=== PATIENT | male | born 1965 | race African-American/Black ===

== ENCOUNTER 2019-04-08 10:21 | Inpatient (IN) | payer OTHER ==
[2019-04-08 11:01] VITALS: BMI 31.5
[2019-04-08] MEDS ORDERED: MAGNESIUM CITRATE 300 ML BOTTLE PO PRN (13:00)
[2019-04-08] MEDS ORDERED: MENTHOL/PHENOL 1 EACH UD MM PRN (13:00)
[2019-04-08] MEDS ORDERED: MAG HYDROX/AL HYDROX/SIMETH 30 ML UNIT-DOSE CUP PO PRN (13:00)
[2019-04-08] MEDS ORDERED: MAGNESIUM HYDROX 2400MG/30ML ORAL SUSPENSION 30 ML CUP PO PRN (13:00)
[2019-04-08] MEDS ORDERED: ACETAMINOPHEN 325 MG TABLET (FP) PO PRN (13:00)
[2019-04-08] MEDS ORDERED: IBUPROFEN 400 MG TABLET (FP) PO PRN (13:00)
[2019-04-08] MEDS ORDERED: BISMUTH SUBSALICYLATE 524 MG/30 ML UD PO PRN (13:00)
[2019-04-08] MEDS ORDERED: chlordiazePOXIDE HCL 25 MG CAPSULE PO SCH (13:00)
[2019-04-08] MEDS ORDERED: MELATONIN 5 MG TABLETS PO PRN (13:00)
[2019-04-08] MEDS ORDERED: hydrOXYzine PAMOATE 25 MG CAPSULE (FP) PO PRN (13:00)
--- NOTE | 2019-04-08 13:00 | HP ---
CIWA Score Nausea/Vomitin Muscle Tremors: None Anxiety: 2 Agitation: 2 Paroxysmal Sweats: No Perspiration Orientation: 1-Uncertain about Date Tacttile Disturbances: 2-Mild Itch/Numbness/Burn Auditory Disturbances: 0-None Visual Disturbances: 1-Very Mild Sensitivity Headache: 0-None Present CIWA-Ar Total Score: 10 - Admission Criteria OASAS Guidelines: Admission for Medically Managed Detox: Requires at least one of the followin. CIWA greater than 12 2. Seizures within the past 24 hours 3. Delirium tremens within the past 24 hours 4. Hallucinations within the past 24 hours 5. Acute intervention needed for co occurring medical disorder 6. Acute intervention needed for co occurring psychiatric disorder 7. Severe withdrawal that cannot be handled at a lower level of care (continued vomiting, continued diarrhea, abnormal vital signs) requiring intravenous medication and/or fluids 8. Admitting History and Physical - Smoking History Smoking history: Current some day smoker Have you smoked in the past 12 months: Yes Aproximately how many cigarettes per day: 5 - Alcohol/Substance Use Hx Alcohol Use: Yes Admission ROS [facility] - HPI Allergies/Adverse Reactions: Allergies Allergy/AdvReac Type Severity Reaction Status Date / Time Fish Containing Products Allergy Severe Swelling Verified 04/08/19 10:50 Penicillins Allergy Severe Hives Verified 04/08/19 10:50 History of Present Illness: pt here requesting detox from etoh use , reports 3 pints/day , latest use yesterday . denies seizures, + blackouts, reprots use x 3-4 months. Exam Limitations: Clinical Condition - Ebola screening Have you traveled outside of the country in the last 21 days: No Have you had contact with anyone from an Ebola affected area: No Do you have a fever: No - Review of Systems Constitutional: No Symptoms Reported EENT: reports: Other (no teeth , corneal transplant R) Respiratory: reports: No Symptoms reported Cardiac: reports: No Symptoms Reported GI: reports: See HPI, Other (s/p r inguinal hernia repair , known umbilical hernia asymptomatic) : reports: No Symptoms Reported Musculoskeletal: reports: No Symptoms Reported Integumentary: reports: No Symptoms Reported Neuro: reports: No Symptoms reported Endocrine: reports: No Symptoms Reported Psychiatric: reports: Anxious Patient History - Patient Medical History Hx Anemia: No Hx Asthma: No Hx Chronic Obstructive Pulmonary Disease (COPD): No Hx Cancer: No Hx Cardiac Disorders: No Hx Congestive Heart Failure: No Hx Hypertension: No Hx Hypercholesterolemia: Yes (MAYBE) Hx Pacemaker: No HX Cerebrovascular Accident: No Hx Seizures: No Hx Dementia: No Hx Diabetes: No Hx Gastrointestinal Disorders: Yes (DYSPEPSIA) Hx Liver Disease: No Hx Genitourinary Disorders: No Hx Sexually Transmitted Disorders: No Hx Renal Disease (ESRD): No Hx Thyroid Disease: No Hx Human Immunodeficiency Virus (HIV): No Hx Hepatitis C: No Hx Depression: No Hx Suicide Attempt: No Hx Bipolar Disorder: No Hx Schizophrenia: No - Patient Surgical History Past Surgical History: Yes Hx Neurologic Surgery: No Hx Cataract Extraction: (LEFT CORNEAL TRANSPLANT) Hx Cardiac Surgery: No Hx Lung Surgery: No Hx Breast Surgery: No Hx Breast Biopsy: No Hx Abdominal Surgery: Yes (RT. INGUINAL HERNIA REPAIR) Hx Appendectomy: No Hx Cholecystectomy: No Hx Genitourinary Surgery: No Hx Section: No Hx Orthopedic Surgery: No Other Surgical History: THROAT BIOPSY Anesthesia Reaction: No - PPD History Date: 09/28/14 Results: 0 mm - Smoking Cessation Smoking history: Current some day smoker Have you smoked in the past 12 months: Yes Aproximately how many cigarettes per day: 5 Cigars Per Day: 0 Hx Chewing Tobacco Use: No Initiated information on smoking cessation: No - Substances abused Alcohol Substance route: Oral Frequency: Daily Amount used: REGAN/ BEERS - 12 CANx 22OZ Age of first use: 7 Date of last use: 04/07/19 Heroin Substance route: Inhalation Frequency: 1-2 times per week Amount used: 3BAGS Age of first use: 33 Date of last use: 04/06/19 Cocaine Substance route: Inhalation Frequency: Daily Amount used: 4-BAGS Age of first use: 21 Date of last use: 04/07/19 Admission Physical Exam B[facility] - Vital Signs Vital Signs: Vital Signs - 24 hr 04/08/19 10:49 Temperature 97.7 F Pulse Rate 89 Respiratory 18 Rate Blood Pressure 138/80 - Physical General Appearance: Yes: No Apparent Distress, Anxious HEENTM: Yes: EOMI, Hearing grossly Normal, Normocephalic, Normal Voice Respiratory: Yes: Chest Non-Tender, Lungs Clear, Normal Breath Sounds, No Respiratory Distress, No Accessory Muscle Use Neck: Yes: No masses,lesions,Nodules, Trachea in good position Cardiology: Yes: Regular Rhythm, Regular Rate, S1, S2 Abdominal: Yes: Non Tender, Soft, Protuberent, Hernia (right uimbilical , reducible, non- tender) Musculoskeletal: Yes: full range of Motion, Gait Steady Extremities: Yes: Normal Range of Motion, Non-Tender Neurological: Yes: Fully Oriented, Alert, Motor Strength 5/5, Normal Mood/Affect Integumentary: Yes: Warm - Diagnostic (1) Alcohol dependence Current Visit: Yes Status: Chronic Qualifiers: Substance use status: uncomplicated Qualified Code(s): F10.20 - Alcohol dependence, uncomplicated Breathalyzer - Breathalyzer Breathalyzer: 0 Urine Drug Screen - Test Device Lot number: [id number] Expiration date: 10/20/20 - Control Is test valid?: Yes - Results Drug screen NEGATIVE: No Urine drug screen results: MERY-Cocaine Inpatient Rehab Admission - Rehab Decision to Admit Inpatient rehab admission?: No
[2019-04-08] MEDS ORDERED: chlordiazePOXIDE HCL 10 MG CAPSULE PO PRN (13:04)
[2019-04-08] MEDS ORDERED: diazePAM 5 MG TABLET PO PRN (13:07)
[2019-04-08] MEDS: diazePAM 5 MG TABLET PO SCH ×2 (14:22→22:38)
[2019-04-08 17:10] LABS: HEMOGLOBIN 15.4 GM/dL (11.7-16.9); MCH 21.7 pg (25.7-33.7); MCHC 31.5 g/dl (32.0-35.9); MEAN CELL VOLUME 68.8 fl (80-96); MEAN PLT VOLUME 9.8 fl (7.5-11.1); PLATELET COUNT 183 K/MM3 (134-434); RDW 16.8 % (11.9-15.9)
[2019-04-08 17:14] LABS: RBC 7.13 M/mm3 (4.00-5.60)
[2019-04-08 17:37] LABS: POTASSIUM 4.4 mmol/L (3.5-5.1)
[2019-04-08 17:38] LABS: ALBUMIN 3.8 g/dl (3.4-5.0); BILIRUBIN,TOTAL 0.7 mg/dL (0.2-1); BLOOD UREA NITROGEN 18.7 mg/dL (7-18); CREATININE 1.2 mg/dL (0.55-1.3); TOT PROT 7.3 g/dl (6.4-8.2)
[2019-04-08] MEDS: THIAMINE HCL 100 MG TABLET (FP) PO SCH (22:38)
[2019-04-09] MEDS: diazePAM 5 MG TABLET PO SCH ×3 (05:41→22:49)
[2019-04-09] MEDS: PRENATAL VITAMINS W/ FOLIC ACID TABLET (FP) PO SCH (10:45)
[2019-04-09] MEDS ORDERED: chlordiazePOXIDE HCL 10 MG CAPSULE PO SCH (13:00)
--- NOTE | 2019-04-09 14:46 | PN ---
S CIWA - CIWA Score Nausea/Vomitin-No Nausea/No Vomiting Muscle Tremors: None Anxiety: 4-Mod. Anxious/Guarded Agitation: 3 Paroxysmal Sweats: No Perspiration Orientation: 0-Oriented Tacttile Disturbances: 1-Very Mild Itch/Numbness Auditory Disturbances: 0-None Visual Disturbances: 2-Mild Sensitivity Headache: 0-None Present CIWA-Ar Total Score: 10 BHS Progress Note (SOAP) Subjective: Anxious, Restless, Sweating. Objective: PATIENT A & O X 3, OBSERVED AMBULATING ON DETOX UNIT UNASSISTED. IN NO ACUTE DISTRESS. 04/09/19 14:47 Vital Signs Temperature 98.3 F 04/09/19 09:17 Pulse Rate 96 H 04/09/19 09:17 Respiratory Rate 166 H 04/09/19 09:17 Blood Pressure 119/79 04/09/19 09:17 O2 Sat by Pulse Oximetry (%) Laboratory Tests 04/08/19 04/08/19 04/08/19 13:30 13:30 13:30 WBC 6.0 RBC 7.13 H Hgb 15.4 Hct 49.0 MCV 68.8 L MCH 21.7 L MCHC 31.5 L RDW 16.8 H Plt Count 183 D MPV 9.8 Sodium 137 Potassium 4.4 Chloride 103 Carbon Dioxide 29 Anion Gap 5 L BUN 18.7 H Creatinine 1.2 Est GFR (CKD-EPI)AfAm 78.43 Est GFR (CKD-EPI)NonAf 67.67 Random Glucose 83 Calcium 9.0 Total Bilirubin 0.7 AST 23 ALT 27 Alkaline Phosphatase 82 Total Protein 7.3 Albumin 3.8 RPR Titer Nonreactive LABS NOTED. Assessment: 04/09/19 14:48 WITHDRAWAL SYMPTOMS. Plan: CONTINUE DETOX. INCREASE DAILY ORAL WATER INTAKE.
[2019-04-09] MEDS: THIAMINE HCL 100 MG TABLET (FP) PO SCH (22:49)
[2019-04-10] MEDS: diazePAM 5 MG TABLET PO SCH ×2 (05:38→17:15)
[2019-04-10] MEDS: ACETAMINOPHEN 325 MG TABLET (FP) PO PRN ×2 (08:50→17:15)
[2019-04-10] MEDS: PRENATAL VITAMINS W/ FOLIC ACID TABLET (FP) PO SCH (10:50)
[2019-04-10] MEDS ORDERED: chlordiazePOXIDE HCL 10 MG CAPSULE PO ONE (13:00)
--- NOTE | 2019-04-10 13:10 | PN ---
S CIWA - CIWA Score Nausea/Vomitin-No Nausea/No Vomiting Muscle Tremors: 2 Anxiety: 1-Mildly Anxious Agitation: 1-Slight > Activity Paroxysmal Sweats: No Perspiration Orientation: 0-Oriented Tacttile Disturbances: 0-None Auditory Disturbances: 0-None Visual Disturbances: 0-None Headache: 0-None Present CIWA-Ar Total Score: 4 BHS Progress Note (SOAP) Subjective: tired diarrhea Objective: 04/10/19 13:09 Vital Signs Temperature 97.1 F L 04/10/19 09:27 Pulse Rate 112 H 04/10/19 09:27 Respiratory Rate 18 04/10/19 09:27 Blood Pressure 155/99 04/10/19 09:27 O2 Sat by Pulse Oximetry (%) Laboratory Tests 04/08/19 04/08/19 04/08/19 13:30 13:30 13:30 WBC 6.0 RBC 7.13 H Hgb 15.4 Hct 49.0 MCV 68.8 L MCH 21.7 L MCHC 31.5 L RDW 16.8 H Plt Count 183 D MPV 9.8 Sodium 137 Potassium 4.4 Chloride 103 Carbon Dioxide 29 Anion Gap 5 L BUN 18.7 H Creatinine 1.2 Est GFR (CKD-EPI)AfAm 78.43 Est GFR (CKD-EPI)NonAf 67.67 Random Glucose 83 Calcium 9.0 Total Bilirubin 0.7 AST 23 ALT 27 Alkaline Phosphatase 82 Total Protein 7.3 Albumin 3.8 RPR Titer Nonreactive aaox3 ambulating no acute distress Assessment: 04/10/19 13:10 mild withdrawals Plan: pepto prn increase fluids d/c in am
[2019-04-10] MEDS: THIAMINE HCL 100 MG TABLET (FP) PO SCH (23:05)
[2019-04-11] MEDS: ACETAMINOPHEN 325 MG TABLET (FP) PO PRN (02:31)
[2019-04-11] MEDS ORDERED: diazePAM 5 MG TABLET PO ONE (06:00)
--- NOTE | 2019-04-11 08:41 | DS ---
[facility] Detox Discharge Summary Admission Date: 04/08/19 Discharge Date: 04/11/19 - History Present History: Alcohol Dependence - Physical Exam Results Vital Signs: Vital Signs Temperature 97.7 F 04/11/19 06:56 Pulse Rate 64 04/11/19 06:56 Respiratory Rate 18 04/11/19 06:56 Blood Pressure 139/79 04/11/19 06:56 O2 Sat by Pulse Oximetry (%) Pertinent Admission Physical Exam Findings: Vital Signs Temperature 97.7 F 04/11/19 06:56 Pulse Rate 64 04/11/19 06:56 Respiratory Rate 18 04/11/19 06:56 Blood Pressure 139/79 04/11/19 06:56 O2 Sat by Pulse Oximetry (%) Laboratory Tests 04/08/19 04/08/19 04/08/19 13:30 13:30 13:30 WBC 6.0 RBC 7.13 H Hgb 15.4 Hct 49.0 MCV 68.8 L MCH 21.7 L MCHC 31.5 L RDW 16.8 H Plt Count 183 D MPV 9.8 Sodium 137 Potassium 4.4 Chloride 103 Carbon Dioxide 29 Anion Gap 5 L BUN 18.7 H Creatinine 1.2 Est GFR (CKD-EPI)AfAm 78.43 Est GFR (CKD-EPI)NonAf 67.67 Random Glucose 83 Calcium 9.0 Total Bilirubin 0.7 AST 23 ALT 27 Alkaline Phosphatase 82 Total Protein 7.3 Albumin 3.8 RPR Titer Nonreactive aaox3 ambulating no acute distress - Treatment Hospital Course: Detox Protocol Followed, Detoxed Safely, Responded well, Discharged Condition Good, Rehab Referral Accepted Patient has Accepted a Rehab Referral to: referred to [facility] - Medication Discharge Medications: Ambulatory Orders Ergocalciferol (Vitamin D2) [Vitamin D2] 50,000 unit PO WEEKLY 04/08/19 Simvastatin [Zocor] 10 mg PO HS 04/08/19 - Diagnosis (1) Alcohol dependence Current Visit: Yes Status: Chronic Qualifiers: Substance use status: uncomplicated Qualified Code(s): F10.20 - Alcohol dependence, uncomplicated - AMA Did Patient Leave Against Medical Advice: No
[2019-04-11 09:43] VITALS: BP 137/98; PULSE 94; TEMP 97.8
== END 2019-04-11 10:25 | disposition home or self-care (01) | DRG 775 ==
LOC: YASAS 10:21 → Y6N 13:10
PROVIDERS: ADMIT Allergy & Immunology; ATTEND Allergy & Immunology
PROC: HZ2ZZZZ Detoxification Services for Substance Abuse Treatment (ICD-10-PCS; principal; 2019-04-08)
DX: F10.230 Alcohol dependence with withdrawal, uncomplicated (principal); F17.210 Nicotine dependence, cigarettes, uncomplicated; Z88.0 Allergy status to penicillin; Z91.013 Allergy to seafood
CPT/HCPCS: 36415; 80053; 85027; 86593

== ENCOUNTER 2020-03-01 12:59 | Inpatient (IN) | payer OTHER ==
[2020-03-01 17:27] VITALS: BMI 34.0
[2020-03-01] MEDS ORDERED: NICOTINE POLACRILEX 2 MG GUM BUC PRN (17:54)
[2020-03-01] MEDS ORDERED: P-EPHED 60MG/TRIPROLIDI 2.5MG TABLET PO PRN (17:54)
[2020-03-01] MEDS ORDERED: MAGNESIUM HYDROX 2400MG/30ML ORAL SUSPENSION 30 ML CUP PO PRN (17:54)
[2020-03-01] MEDS ORDERED: MAG HYDROX/AL HYDROX/SIMETH 30 ML UNIT-DOSE CUP PO PRN (17:54)
[2020-03-01] MEDS ORDERED: MAGNESIUM CITRATE 300 ML BOTTLE PO PRN (17:54)
[2020-03-01] MEDS ORDERED: guaiFENesin 200 MG/10 ML 10 ML UNIT-DOSE CUPS PO PRN (17:54)
[2020-03-01] MEDS ORDERED: LOPERAMIDE HCL 2 MG CAPSULE PO PRN (17:54)
[2020-03-01] MEDS: hydrOXYzine PAMOATE 25 MG CAPSULE (FP) PO SCH ×2 (19:10→22:10)
[2020-03-01] MEDS: MELATONIN 5 MG TABLETS PO SCH (22:09)
[2020-03-01] MEDS: THIAMINE HCL 100 MG TABLET (FP) PO SCH (22:10)
[2020-03-01] MEDS ORDERED: PT OWN MED DRAWER 7, Y5N ONE (22:18)
[2020-03-02] MEDS: hydrOXYzine PAMOATE 25 MG CAPSULE (FP) PO SCH ×5 (06:51→22:53)
[2020-03-02] MEDS: HYDROCHLOROTHIAZIDE 12.5 MG CAPSULE (FP) PO SCH (11:09)
[2020-03-02] MEDS: amLODIPine BESYLATE 10 MG TABLET (FP) PO SCH (11:09)
[2020-03-02] MEDS: PRENATAL VITAMINS W/ FOLIC ACID TABLET (FP) PO SCH (11:09)
[2020-03-02 14:44] LABS: POTASSIUM 4.6 mmol/L (3.5-5.1)
[2020-03-02 14:46] LABS: ALBUMIN 3.2 g/dl (3.4-5.0); BLOOD UREA NITROGEN 8.6 mg/dL (7-18); CALCIUM 8.8 mg/dL (8.5-10.1); HEMATOCRIT 49.1 % (35.4-49); HEMOGLOBIN 14.8 GM/dL (11.7-16.9); MCH 21.4 pg (25.7-33.7); MCHC 30.2 g/dl (32.0-35.9); MEAN CELL VOLUME 70.9 fl (80-96); MEAN PLT VOLUME 9.9 fl (7.5-11.1); PLATELET COUNT 208 K/MM3 (134-434); RBC 6.92 M/mm3 (4.00-5.60); RDW 16.6 % (11.9-15.9); WHITE BLOOD COUNT 7.9 K/mm3 (4.0-10.0)
[2020-03-02 14:50] LABS: CREATININE 1.2 mg/dL (0.55-1.3)
[2020-03-02 14:51] LABS: BILIRUBIN,TOTAL 0.4 mg/dL (0.2-1); TOT PROT 6.4 g/dl (6.4-8.2)
[2020-03-02 15:17] LABS: PH,URINE 5.5 (5.0-8.0); URINE APPEARANCE CLEAR; URINE BILIRUBIN NEGATIVE (NEGATIVE); URINE COLOR YELLOW; URINE GLUCOSE (UA) NEGATIVE (NEGATIVE); URINE KETONE NEGATIVE (NEGATIVE); URINE LEUK ESTERASE NEGATIVE (NEGATIVE); URINE NITRITE NEGATIVE (NEGATIVE); URINE PROTEIN NEGATIVE (NEGATIVE)
[2020-03-02 15:20] LABS: SICKLE CELL SCREEN NEGATIVE (NEGATIVE)
[2020-03-02] MEDS: ATORVASTATIN CA 10 MG TABLET (FP) PO SCH (22:53)
[2020-03-02] MEDS: MELATONIN 5 MG TABLETS PO SCH (22:53)
[2020-03-02] MEDS: THIAMINE HCL 100 MG TABLET (FP) PO SCH (22:53)
[2020-03-03] MEDS: hydrOXYzine PAMOATE 25 MG CAPSULE (FP) PO SCH ×6 (06:27→22:38)
[2020-03-03] MEDS: amLODIPine BESYLATE 10 MG TABLET (FP) PO SCH ×2 (09:38→10:11)
[2020-03-03] MEDS: PRENATAL VITAMINS W/ FOLIC ACID TABLET (FP) PO SCH ×2 (09:38→10:11)
[2020-03-03] MEDS: HYDROCHLOROTHIAZIDE 12.5 MG CAPSULE (FP) PO SCH ×2 (09:38→10:11)
[2020-03-03] MEDS: IBUPROFEN 400 MG TABLET (FP) PO PRN (19:46)
[2020-03-03] MEDS: MELATONIN 5 MG TABLETS PO SCH (22:38)
[2020-03-03] MEDS: ATORVASTATIN CA 10 MG TABLET (FP) PO SCH (22:38)
[2020-03-03] MEDS: THIAMINE HCL 100 MG TABLET (FP) PO SCH (22:38)
[2020-03-04] MEDS: hydrOXYzine PAMOATE 25 MG CAPSULE (FP) PO SCH ×5 (07:21→22:48)
[2020-03-04] MEDS: HYDROCHLOROTHIAZIDE 12.5 MG CAPSULE (FP) PO SCH (12:30)
[2020-03-04] MEDS: amLODIPine BESYLATE 10 MG TABLET (FP) PO SCH (12:30)
[2020-03-04] MEDS: PRENATAL VITAMINS W/ FOLIC ACID TABLET (FP) PO SCH (12:32)
[2020-03-04] MEDS: IBUPROFEN 400 MG TABLET (FP) PO PRN (14:05)
[2020-03-04] MEDS: ATORVASTATIN CA 10 MG TABLET (FP) PO SCH (22:47)
[2020-03-04] MEDS: THIAMINE HCL 100 MG TABLET (FP) PO SCH (22:48)
[2020-03-04] MEDS: MELATONIN 5 MG TABLETS PO SCH (22:48)
[2020-03-05] MEDS: hydrOXYzine PAMOATE 25 MG CAPSULE (FP) PO SCH ×2 (06:20→11:01)
[2020-03-05] MEDS: HYDROCHLOROTHIAZIDE 12.5 MG CAPSULE (FP) PO SCH (10:59)
[2020-03-05] MEDS: amLODIPine BESYLATE 10 MG TABLET (FP) PO SCH (10:59)
[2020-03-05] MEDS: PRENATAL VITAMINS W/ FOLIC ACID TABLET (FP) PO SCH (11:01)
[2020-03-05] MEDS ORDERED: hydrOXYzine PAMOATE 25 MG CAPSULE (FP) PO PRN (11:34)
[2020-03-05] MEDS: ATORVASTATIN CA 10 MG TABLET (FP) PO SCH (21:38)
[2020-03-05] MEDS: MELATONIN 5 MG TABLETS PO SCH (21:38)
[2020-03-05] MEDS: THIAMINE HCL 100 MG TABLET (FP) PO SCH (21:38)
[2020-03-06] MEDS: amLODIPine BESYLATE 10 MG TABLET (FP) PO SCH (11:15)
[2020-03-06] MEDS: ACETAMINOPHEN 325 MG TABLET (FP) PO PRN (11:15)
[2020-03-06] MEDS: HYDROCHLOROTHIAZIDE 12.5 MG CAPSULE (FP) PO SCH (11:23)
[2020-03-06] MEDS: PRENATAL VITAMINS W/ FOLIC ACID TABLET (FP) PO SCH (11:23)
[2020-03-06] MEDS: IBUPROFEN 400 MG TABLET (FP) PO PRN (15:14)
[2020-03-06] MEDS: MELATONIN 5 MG TABLETS PO SCH (22:44)
[2020-03-06] MEDS: THIAMINE HCL 100 MG TABLET (FP) PO SCH (22:44)
[2020-03-06] MEDS: ATORVASTATIN CA 10 MG TABLET (FP) PO SCH (22:45)
[2020-03-07] MEDS ORDERED: PT OWN MED DRAWER 7, Y5N ONE (08:27)
[2020-03-07] MEDS: ERGOCALCIFEROL (VIT D2) 50,000 UNIT (1.25 MG) CAPSULE PO SCH (09:39)
[2020-03-07] MEDS: amLODIPine BESYLATE 10 MG TABLET (FP) PO SCH (09:40)
[2020-03-07] MEDS: PRENATAL VITAMINS W/ FOLIC ACID TABLET (FP) PO SCH (09:40)
[2020-03-07] MEDS: HYDROCHLOROTHIAZIDE 12.5 MG CAPSULE (FP) PO SCH (09:40)
[2020-03-07] MEDS: IBUPROFEN 400 MG TABLET (FP) PO PRN (12:46)
[2020-03-07] MEDS: ATORVASTATIN CA 10 MG TABLET (FP) PO SCH (21:32)
[2020-03-07] MEDS: THIAMINE HCL 100 MG TABLET (FP) PO SCH (21:32)
[2020-03-07] MEDS: MELATONIN 5 MG TABLETS PO SCH (21:32)
[2020-03-08] MEDS: amLODIPine BESYLATE 10 MG TABLET (FP) PO SCH (09:22)
[2020-03-08] MEDS: PRENATAL VITAMINS W/ FOLIC ACID TABLET (FP) PO SCH (09:22)
[2020-03-08] MEDS: HYDROCHLOROTHIAZIDE 12.5 MG CAPSULE (FP) PO SCH (09:22)
[2020-03-08] MEDS: IBUPROFEN 400 MG TABLET (FP) PO PRN ×2 (09:23→17:37)
[2020-03-08] MEDS: THIAMINE HCL 100 MG TABLET (FP) PO SCH (21:41)
[2020-03-08] MEDS: MELATONIN 5 MG TABLETS PO SCH (21:41)
[2020-03-08] MEDS: ATORVASTATIN CA 10 MG TABLET (FP) PO SCH (21:41)
[2020-03-09] MEDS: IBUPROFEN 400 MG TABLET (FP) PO PRN ×3 (06:46→18:51)
[2020-03-09] MEDS: PRENATAL VITAMINS W/ FOLIC ACID TABLET (FP) PO SCH (09:07)
[2020-03-09] MEDS: HYDROCHLOROTHIAZIDE 12.5 MG CAPSULE (FP) PO SCH (09:07)
[2020-03-09] MEDS: amLODIPine BESYLATE 10 MG TABLET (FP) PO SCH (09:07)
[2020-03-09] MEDS: MELATONIN 5 MG TABLETS PO SCH (21:38)
[2020-03-09] MEDS: THIAMINE HCL 100 MG TABLET (FP) PO SCH (21:38)
[2020-03-09] MEDS: ATORVASTATIN CA 10 MG TABLET (FP) PO SCH (21:38)
[2020-03-10] MEDS: PRENATAL VITAMINS W/ FOLIC ACID TABLET (FP) PO SCH (11:07)
[2020-03-10] MEDS: HYDROCHLOROTHIAZIDE 12.5 MG CAPSULE (FP) PO SCH (11:07)
[2020-03-10] MEDS: amLODIPine BESYLATE 10 MG TABLET (FP) PO SCH (11:07)
[2020-03-10] MEDS: IBUPROFEN 400 MG TABLET (FP) PO PRN (11:08)
[2020-03-10] MEDS: ATORVASTATIN CA 10 MG TABLET (FP) PO SCH (22:06)
[2020-03-10] MEDS: THIAMINE HCL 100 MG TABLET (FP) PO SCH (22:06)
[2020-03-10] MEDS: MELATONIN 5 MG TABLETS PO SCH (22:06)
[2020-03-11] MEDS: amLODIPine BESYLATE 10 MG TABLET (FP) PO SCH (10:22)
[2020-03-11] MEDS: HYDROCHLOROTHIAZIDE 12.5 MG CAPSULE (FP) PO SCH (10:22)
[2020-03-11] MEDS: PRENATAL VITAMINS W/ FOLIC ACID TABLET (FP) PO SCH (10:22)
[2020-03-11] MEDS: IBUPROFEN 400 MG TABLET (FP) PO PRN (13:05)
[2020-03-11] MEDS: ATORVASTATIN CA 10 MG TABLET (FP) PO SCH (22:24)
[2020-03-11] MEDS: THIAMINE HCL 100 MG TABLET (FP) PO SCH (22:25)
[2020-03-11] MEDS: MELATONIN 5 MG TABLETS PO SCH (22:25)
[2020-03-12] MEDS: HYDROCHLOROTHIAZIDE 12.5 MG CAPSULE (FP) PO SCH (09:51)
[2020-03-12] MEDS: amLODIPine BESYLATE 10 MG TABLET (FP) PO SCH (09:51)
[2020-03-12] MEDS: PRENATAL VITAMINS W/ FOLIC ACID TABLET (FP) PO SCH (09:51)
[2020-03-12] MEDS: IBUPROFEN 400 MG TABLET (FP) PO PRN (09:52)
[2020-03-12] MEDS ORDERED: SODIUM CHLORIDE NASAL SPRAY 44 ML BOTTLE NS PRN (12:39)
[2020-03-12] MEDS: THIAMINE HCL 100 MG TABLET (FP) PO SCH (21:54)
[2020-03-12] MEDS: ATORVASTATIN CA 10 MG TABLET (FP) PO SCH (21:54)
[2020-03-12] MEDS: MELATONIN 5 MG TABLETS PO SCH (21:54)
[2020-03-13] MEDS: IBUPROFEN 400 MG TABLET (FP) PO PRN ×3 (07:49→21:27)
[2020-03-13] MEDS: amLODIPine BESYLATE 10 MG TABLET (FP) PO SCH (10:01)
[2020-03-13] MEDS: PRENATAL VITAMINS W/ FOLIC ACID TABLET (FP) PO SCH (10:01)
[2020-03-13] MEDS: HYDROCHLOROTHIAZIDE 12.5 MG CAPSULE (FP) PO SCH (10:01)
[2020-03-13] MEDS: TETRAHYDROZOLINE HCL EYE DROPS OU PRN (10:56)
[2020-03-13] MEDS: MELATONIN 5 MG TABLETS PO SCH (21:28)
[2020-03-13] MEDS: ATORVASTATIN CA 10 MG TABLET (FP) PO SCH (21:28)
[2020-03-13] MEDS: THIAMINE HCL 100 MG TABLET (FP) PO SCH (21:28)
[2020-03-14] MEDS: IBUPROFEN 400 MG TABLET (FP) PO PRN (10:44)
[2020-03-14] MEDS: ERGOCALCIFEROL (VIT D2) 50,000 UNIT (1.25 MG) CAPSULE PO SCH (10:44)
[2020-03-14] MEDS: amLODIPine BESYLATE 10 MG TABLET (FP) PO SCH (10:44)
[2020-03-14] MEDS: TETRAHYDROZOLINE HCL EYE DROPS OU PRN (10:46)
[2020-03-14] MEDS: PRENATAL VITAMINS W/ FOLIC ACID TABLET (FP) PO SCH (10:46)
[2020-03-14] MEDS: HYDROCHLOROTHIAZIDE 12.5 MG CAPSULE (FP) PO SCH (10:47)
[2020-03-14] MEDS: THIAMINE HCL 100 MG TABLET (FP) PO SCH (21:47)
[2020-03-14] MEDS: MELATONIN 5 MG TABLETS PO SCH (21:47)
[2020-03-14] MEDS: ATORVASTATIN CA 10 MG TABLET (FP) PO SCH (21:47)
[2020-03-15] MEDS: amLODIPine BESYLATE 10 MG TABLET (FP) PO SCH (10:10)
[2020-03-15] MEDS: IBUPROFEN 400 MG TABLET (FP) PO PRN ×2 (10:11→15:17)
[2020-03-15] MEDS: TETRAHYDROZOLINE HCL EYE DROPS OU PRN (10:12)
[2020-03-15] MEDS: HYDROCHLOROTHIAZIDE 12.5 MG CAPSULE (FP) PO SCH (10:12)
[2020-03-15] MEDS: PRENATAL VITAMINS W/ FOLIC ACID TABLET (FP) PO SCH (10:12)
[2020-03-15] MEDS ORDERED: PT OWN MED DRAWER 7, Y5N ONE (19:20)
[2020-03-15] MEDS: MELATONIN 5 MG TABLETS PO SCH (21:51)
[2020-03-15] MEDS: ATORVASTATIN CA 10 MG TABLET (FP) PO SCH (21:51)
[2020-03-15] MEDS: THIAMINE HCL 100 MG TABLET (FP) PO SCH (21:51)
[2020-03-16] MEDS: HYDROCHLOROTHIAZIDE 12.5 MG CAPSULE (FP) PO SCH (10:35)
[2020-03-16] MEDS: amLODIPine BESYLATE 10 MG TABLET (FP) PO SCH (10:35)
[2020-03-16] MEDS: PRENATAL VITAMINS W/ FOLIC ACID TABLET (FP) PO SCH (10:36)
[2020-03-16] MEDS: IBUPROFEN 400 MG TABLET (FP) PO PRN (18:15)
[2020-03-16] MEDS: THIAMINE HCL 100 MG TABLET (FP) PO SCH (21:39)
[2020-03-16] MEDS: MELATONIN 5 MG TABLETS PO SCH (21:39)
[2020-03-16] MEDS: ATORVASTATIN CA 10 MG TABLET (FP) PO SCH (21:39)
[2020-03-17] MEDS: amLODIPine BESYLATE 10 MG TABLET (FP) PO SCH (09:25)
[2020-03-17] MEDS: IBUPROFEN 400 MG TABLET (FP) PO PRN ×2 (09:26→21:40)
[2020-03-17] MEDS: TETRAHYDROZOLINE HCL EYE DROPS OU PRN (09:27)
[2020-03-17] MEDS: HYDROCHLOROTHIAZIDE 12.5 MG CAPSULE (FP) PO SCH (09:28)
[2020-03-17] MEDS: PRENATAL VITAMINS W/ FOLIC ACID TABLET (FP) PO SCH (09:34)
[2020-03-17] MEDS: MELATONIN 5 MG TABLETS PO SCH (21:44)
[2020-03-17] MEDS: ATORVASTATIN CA 10 MG TABLET (FP) PO SCH (21:44)
[2020-03-17] MEDS: THIAMINE HCL 100 MG TABLET (FP) PO SCH (21:44)
[2020-03-18] MEDS: amLODIPine BESYLATE 10 MG TABLET (FP) PO SCH (09:08)
[2020-03-18] MEDS: TETRAHYDROZOLINE HCL EYE DROPS OU PRN (09:08)
[2020-03-18] MEDS: HYDROCHLOROTHIAZIDE 12.5 MG CAPSULE (FP) PO SCH (09:09)
[2020-03-18] MEDS: PRENATAL VITAMINS W/ FOLIC ACID TABLET (FP) PO SCH (09:09)
[2020-03-18] MEDS ORDERED: MASKS NR ONE (17:04)
[2020-03-18] MEDS: IBUPROFEN 400 MG TABLET (FP) PO PRN (20:02)
[2020-03-18] MEDS: ATORVASTATIN CA 10 MG TABLET (FP) PO SCH (22:35)
[2020-03-18] MEDS: THIAMINE HCL 100 MG TABLET (FP) PO SCH (22:35)
[2020-03-18] MEDS: MELATONIN 5 MG TABLETS PO SCH (22:35)
[2020-03-19] MEDS: amLODIPine BESYLATE 10 MG TABLET (FP) PO SCH (10:37)
[2020-03-19] MEDS: IBUPROFEN 400 MG TABLET (FP) PO PRN (10:38)
[2020-03-19] MEDS: PRENATAL VITAMINS W/ FOLIC ACID TABLET (FP) PO SCH (10:49)
[2020-03-19] MEDS: HYDROCHLOROTHIAZIDE 12.5 MG CAPSULE (FP) PO SCH (10:49)
[2020-03-19] MEDS: THIAMINE HCL 100 MG TABLET (FP) PO SCH (21:37)
[2020-03-19] MEDS: MELATONIN 5 MG TABLETS PO SCH (21:37)
[2020-03-19] MEDS: ATORVASTATIN CA 10 MG TABLET (FP) PO SCH (21:37)
[2020-03-20] MEDS: PRENATAL VITAMINS W/ FOLIC ACID TABLET (FP) PO SCH (10:02)
[2020-03-20] MEDS: amLODIPine BESYLATE 10 MG TABLET (FP) PO SCH (10:02)
[2020-03-20] MEDS: HYDROCHLOROTHIAZIDE 12.5 MG CAPSULE (FP) PO SCH (10:02)
[2020-03-20] MEDS: IBUPROFEN 400 MG TABLET (FP) PO PRN (10:03)
[2020-03-20] MEDS: ATORVASTATIN CA 10 MG TABLET (FP) PO SCH (21:52)
[2020-03-20] MEDS: MELATONIN 5 MG TABLETS PO SCH (21:52)
[2020-03-20] MEDS: THIAMINE HCL 100 MG TABLET (FP) PO SCH (21:52)
[2020-03-21] MEDS: HYDROCHLOROTHIAZIDE 12.5 MG CAPSULE (FP) PO SCH (10:21)
[2020-03-21] MEDS: amLODIPine BESYLATE 10 MG TABLET (FP) PO SCH (10:21)
[2020-03-21] MEDS: PRENATAL VITAMINS W/ FOLIC ACID TABLET (FP) PO SCH (10:21)
[2020-03-21] MEDS: ERGOCALCIFEROL (VIT D2) 50,000 UNIT (1.25 MG) CAPSULE PO SCH (10:21)
[2020-03-21] MEDS: MELATONIN 5 MG TABLETS PO SCH (21:25)
[2020-03-21] MEDS: ATORVASTATIN CA 10 MG TABLET (FP) PO SCH (21:25)
[2020-03-21] MEDS: THIAMINE HCL 100 MG TABLET (FP) PO SCH (21:25)
[2020-03-22] MEDS ORDERED: MASKS NR ONE (08:30)
[2020-03-22] MEDS: IBUPROFEN 400 MG TABLET (FP) PO PRN (09:54)
[2020-03-22] MEDS: HYDROCHLOROTHIAZIDE 12.5 MG CAPSULE (FP) PO SCH (09:54)
[2020-03-22] MEDS: PRENATAL VITAMINS W/ FOLIC ACID TABLET (FP) PO SCH (09:54)
[2020-03-22] MEDS: amLODIPine BESYLATE 10 MG TABLET (FP) PO SCH (10:10)
[2020-03-22] MEDS ORDERED: PT OWN MED DRAWER 7, Y5N ONE (11:50)
[2020-03-22] MEDS: MELATONIN 5 MG TABLETS PO SCH (22:26)
[2020-03-22] MEDS: ATORVASTATIN CA 10 MG TABLET (FP) PO SCH (22:26)
[2020-03-22] MEDS: THIAMINE HCL 100 MG TABLET (FP) PO SCH (22:26)
[2020-03-23] MEDS: ACETAMINOPHEN 325 MG TABLET (FP) PO PRN (04:07)
[2020-03-23] MEDS: amLODIPine BESYLATE 10 MG TABLET (FP) PO SCH (09:48)
[2020-03-23] MEDS: HYDROCHLOROTHIAZIDE 12.5 MG CAPSULE (FP) PO SCH (09:48)
[2020-03-23] MEDS: PRENATAL VITAMINS W/ FOLIC ACID TABLET (FP) PO SCH (09:48)
[2020-03-23] MEDS: IBUPROFEN 400 MG TABLET (FP) PO PRN (10:52)
[2020-03-23] MEDS: MELATONIN 5 MG TABLETS PO SCH (21:36)
[2020-03-23] MEDS: ATORVASTATIN CA 10 MG TABLET (FP) PO SCH (21:36)
[2020-03-23] MEDS: THIAMINE HCL 100 MG TABLET (FP) PO SCH (21:36)
[2020-03-23] MEDS ORDERED: PT OWN MED DRAWER 7, Y5N ONE (21:36)
[2020-03-24] MEDS: amLODIPine BESYLATE 10 MG TABLET (FP) PO SCH (10:16)
[2020-03-24] MEDS: HYDROCHLOROTHIAZIDE 12.5 MG CAPSULE (FP) PO SCH (10:17)
[2020-03-24] MEDS: PRENATAL VITAMINS W/ FOLIC ACID TABLET (FP) PO SCH (10:17)
[2020-03-24] MEDS: ATORVASTATIN CA 10 MG TABLET (FP) PO SCH (22:22)
[2020-03-24] MEDS: THIAMINE HCL 100 MG TABLET (FP) PO SCH (22:23)
[2020-03-24] MEDS: MELATONIN 5 MG TABLETS PO SCH (22:23)
[2020-03-25] MEDS: amLODIPine BESYLATE 10 MG TABLET (FP) PO SCH (10:16)
[2020-03-25] MEDS: PRENATAL VITAMINS W/ FOLIC ACID TABLET (FP) PO SCH (10:16)
[2020-03-25] MEDS: HYDROCHLOROTHIAZIDE 12.5 MG CAPSULE (FP) PO SCH (10:16)
[2020-03-25] MEDS: IBUPROFEN 400 MG TABLET (FP) PO PRN (13:46)
[2020-03-25] MEDS ORDERED: PT OWN MED DRAWER 7, Y5N ONE (13:46)
[2020-03-25] MEDS: ATORVASTATIN CA 10 MG TABLET (FP) PO SCH (21:46)
[2020-03-25] MEDS: MELATONIN 5 MG TABLETS PO SCH (21:46)
[2020-03-25] MEDS: THIAMINE HCL 100 MG TABLET (FP) PO SCH (21:46)
[2020-03-26] MEDS: amLODIPine BESYLATE 10 MG TABLET (FP) PO SCH (10:07)
[2020-03-26] MEDS: PRENATAL VITAMINS W/ FOLIC ACID TABLET (FP) PO SCH (10:07)
[2020-03-26] MEDS: HYDROCHLOROTHIAZIDE 12.5 MG CAPSULE (FP) PO SCH (10:07)
[2020-03-26] MEDS: TETRAHYDROZOLINE HCL EYE DROPS OU PRN (10:20)
[2020-03-26] MEDS: IBUPROFEN 400 MG TABLET (FP) PO PRN ×2 (13:31→21:03)
[2020-03-26] MEDS: ATORVASTATIN CA 10 MG TABLET (FP) PO SCH (21:03)
[2020-03-26] MEDS: THIAMINE HCL 100 MG TABLET (FP) PO SCH (21:04)
[2020-03-26] MEDS: MELATONIN 5 MG TABLETS PO SCH (21:04)
[2020-03-27] MEDS: IBUPROFEN 400 MG TABLET (FP) PO PRN ×2 (06:35→12:59)
[2020-03-27] MEDS: amLODIPine BESYLATE 10 MG TABLET (FP) PO SCH (10:09)
[2020-03-27] MEDS: PRENATAL VITAMINS W/ FOLIC ACID TABLET (FP) PO SCH (10:09)
[2020-03-27] MEDS: HYDROCHLOROTHIAZIDE 12.5 MG CAPSULE (FP) PO SCH (10:09)
[2020-03-27] MEDS: ATORVASTATIN CA 10 MG TABLET (FP) PO SCH (21:30)
[2020-03-27] MEDS: THIAMINE HCL 100 MG TABLET (FP) PO SCH (21:30)
[2020-03-27] MEDS: MELATONIN 5 MG TABLETS PO SCH (21:30)
[2020-03-28] MEDS: amLODIPine BESYLATE 10 MG TABLET (FP) PO SCH (09:50)
[2020-03-28] MEDS: ERGOCALCIFEROL (VIT D2) 50,000 UNIT (1.25 MG) CAPSULE PO SCH (09:51)
[2020-03-28] MEDS: HYDROCHLOROTHIAZIDE 12.5 MG CAPSULE (FP) PO SCH (09:51)
[2020-03-28] MEDS: PRENATAL VITAMINS W/ FOLIC ACID TABLET (FP) PO SCH (09:52)
[2020-03-28] MEDS: TETRAHYDROZOLINE HCL EYE DROPS OU PRN (09:52)
[2020-03-28] MEDS ORDERED: PT OWN MED DRAWER 7, Y5N ONE (09:53)
[2020-03-28] MEDS: IBUPROFEN 400 MG TABLET (FP) PO PRN (16:00)
[2020-03-28] MEDS: ATORVASTATIN CA 10 MG TABLET (FP) PO SCH (21:52)
[2020-03-28] MEDS: THIAMINE HCL 100 MG TABLET (FP) PO SCH (21:52)
[2020-03-28] MEDS: MELATONIN 5 MG TABLETS PO SCH (21:52)
[2020-03-29 06:42] VITALS: BP 146/78; PULSE 65; TEMP 97.9
== END 2020-03-29 08:20 | disposition home or self-care (01) | DRG 772 ==
LOC: YASAS 12:59 → Y3W 18:00
PROVIDERS: ADMIT Allergy & Immunology; ATTEND Allergy & Immunology
PROC: HZ42ZZZ Group Counseling for Substance Abuse Treatment, Cognitive-Behavioral (ICD-10-PCS; principal; 2020-03-01)
DX: F10.20 Alcohol dependence, uncomplicated (principal); F14.20 Cocaine dependence, uncomplicated; F17.210 Nicotine dependence, cigarettes, uncomplicated; I10 Essential (primary) hypertension; E78.5 Hyperlipidemia, unspecified; E55.9 Vitamin D deficiency, unspecified; M16.0 Bilateral primary osteoarthritis of hip; H54.8 Legal blindness, as defined in USA; K40.90 Unilateral inguinal hernia, without obstruction or gangrene, not specified as recurrent; Z94.7 Corneal transplant status; Z59.0 Homelessness; Z88.0 Allergy status to penicillin; Z91.013 Allergy to seafood
CPT/HCPCS: 36415; 80053; 81003; 85027; 85660; 86780; C9803; U0003

== ENCOUNTER 2020-08-23 08:28 | Inpatient (IN) | payer OTHER ==
[2020-08-23 09:53] VITALS: BMI 32.0
[2020-08-23] MEDS ORDERED: guaiFENesin 200 MG/10 ML 10 ML UNIT-DOSE CUPS PO PRN (14:51)
[2020-08-23] MEDS ORDERED: MAG HYDROX/AL HYDROX/SIMETH 30 ML UNIT-DOSE CUP PO PRN (14:51)
[2020-08-23] MEDS ORDERED: LOPERAMIDE HCL 2 MG CAPSULE PO PRN (14:51)
[2020-08-23] MEDS ORDERED: MAGNESIUM HYDROX 2400MG/30ML ORAL SUSPENSION 30 ML CUP PO PRN (14:51)
[2020-08-23] MEDS ORDERED: P-EPHED 60MG/TRIPROLIDI 2.5MG TABLET PO PRN (14:51)
[2020-08-23] MEDS ORDERED: MAGNESIUM CITRATE 300 ML BOTTLE PO PRN (14:51)
[2020-08-23] MEDS ORDERED: ACETAMINOPHEN 325 MG TABLET (FP) PO PRN (14:51)
[2020-08-23] MEDS: ASPIRIN COATED 81 MG TABLET.EC PO SCH (15:42)
[2020-08-23] MEDS: ATORVASTATIN CA 10 MG TABLET (FP) PO SCH (21:08)
[2020-08-23] MEDS: THIAMINE HCL 100 MG TABLET (FP) PO SCH (21:08)
[2020-08-23] MEDS: hydrOXYzine PAMOATE 25 MG CAPSULE (FP) PO PRN (21:08)
[2020-08-23] MEDS: MELATONIN 5 MG TABLETS PO SCH (21:10)
[2020-08-24] MEDS: HYDROCHLOROTHIAZIDE 12.5 MG CAPSULE (FP) PO SCH (10:22)
[2020-08-24] MEDS: ASPIRIN COATED 81 MG TABLET.EC PO SCH (10:23)
[2020-08-24] MEDS: amLODIPine BESYLATE 10 MG TABLET (FP) PO SCH (10:23)
[2020-08-24] MEDS: PRENATAL VITAMINS W/ FOLIC ACID TABLET (FP) PO SCH (10:25)
[2020-08-24 11:25] LABS: HEMATOCRIT 46.1 % (35.4-49); HEMOGLOBIN 14.2 GM/dL (11.7-16.9); MCH 21.9 pg (25.7-33.7); MCHC 30.8 g/dl (32.0-35.9); MEAN CELL VOLUME 71.2 fl (80-96); MEAN PLT VOLUME 10.2 fl (7.5-11.1); PLATELET COUNT 197 K/MM3 (134-434); RBC 6.47 M/mm3 (4.00-5.60); RDW 18.3 % (11.9-15.9); WHITE BLOOD COUNT 7.3 K/mm3 (4.0-10.0)
[2020-08-24 11:45] LABS: ALBUMIN 3.4 g/dl (3.4-5.0)
[2020-08-24 11:46] LABS: BLOOD UREA NITROGEN 15.4 mg/dL (7-18)
[2020-08-24 11:49] LABS: CREATININE 1.2 mg/dL (0.55-1.3)
[2020-08-24 11:50] LABS: BILIRUBIN,TOTAL 0.7 mg/dL (0.2-1)
[2020-08-24 11:52] LABS: TOT PROT 6.7 g/dl (6.4-8.2)
[2020-08-24] MEDS: ATENOLOL 50 MG TABLET (FP) PO SCH (11:57)
[2020-08-24] MEDS: MELATONIN 5 MG TABLETS PO SCH (21:55)
[2020-08-24] MEDS: ATORVASTATIN CA 10 MG TABLET (FP) PO SCH (21:55)
[2020-08-24] MEDS: hydrOXYzine PAMOATE 25 MG CAPSULE (FP) PO PRN (21:55)
[2020-08-24] MEDS: THIAMINE HCL 100 MG TABLET (FP) PO SCH (21:55)
[2020-08-24] MEDS: IBUPROFEN 400 MG TABLET (FP) PO PRN (21:56)
[2020-08-25 06:42] VITALS: TEMP 97.1
[2020-08-25] MEDS: ASPIRIN COATED 81 MG TABLET.EC PO SCH (09:29)
[2020-08-25] MEDS: ATENOLOL 50 MG TABLET (FP) PO SCH (09:29)
[2020-08-25] MEDS: PRENATAL VITAMINS W/ FOLIC ACID TABLET (FP) PO SCH (09:29)
[2020-08-25] MEDS: HYDROCHLOROTHIAZIDE 12.5 MG CAPSULE (FP) PO SCH (09:29)
[2020-08-25] MEDS: amLODIPine BESYLATE 10 MG TABLET (FP) PO SCH (09:29)
[2020-08-25] MEDS: MELATONIN 5 MG TABLETS PO SCH (21:55)
[2020-08-25] MEDS: ATORVASTATIN CA 10 MG TABLET (FP) PO SCH (21:55)
[2020-08-25] MEDS: THIAMINE HCL 100 MG TABLET (FP) PO SCH (21:55)
[2020-08-26] MEDS ORDERED: PT OWN MED DRAWER 7, Y5N ONE (08:42)
[2020-08-26] MEDS: ASPIRIN COATED 81 MG TABLET.EC PO SCH (10:21)
[2020-08-26] MEDS: PRENATAL VITAMINS W/ FOLIC ACID TABLET (FP) PO SCH (10:21)
[2020-08-26] MEDS: ATENOLOL 50 MG TABLET (FP) PO SCH (10:21)
[2020-08-26] MEDS: HYDROCHLOROTHIAZIDE 12.5 MG CAPSULE (FP) PO SCH (10:21)
[2020-08-26] MEDS: amLODIPine BESYLATE 10 MG TABLET (FP) PO SCH (10:21)
[2020-08-26] MEDS: THIAMINE HCL 100 MG TABLET (FP) PO SCH (21:06)
[2020-08-26] MEDS: ATORVASTATIN CA 10 MG TABLET (FP) PO SCH (21:06)
[2020-08-26] MEDS: MELATONIN 5 MG TABLETS PO SCH (21:06)
[2020-08-26] MEDS: IBUPROFEN 400 MG TABLET (FP) PO PRN (21:07)
[2020-08-26] MEDS: hydrOXYzine PAMOATE 25 MG CAPSULE (FP) PO PRN (21:07)
[2020-08-27] MEDS: PRENATAL VITAMINS W/ FOLIC ACID TABLET (FP) PO SCH (09:35)
[2020-08-27] MEDS: ATENOLOL 50 MG TABLET (FP) PO SCH (09:35)
[2020-08-27] MEDS: ASPIRIN COATED 81 MG TABLET.EC PO SCH (09:35)
[2020-08-27] MEDS: amLODIPine BESYLATE 10 MG TABLET (FP) PO SCH (09:35)
[2020-08-27] MEDS: HYDROCHLOROTHIAZIDE 12.5 MG CAPSULE (FP) PO SCH (09:35)
[2020-08-27 14:07] LABS: SARS-CoV-2 NAA Not Detected (Not Detected)
[2020-08-27 14:15] VITALS: BP 136/66; PULSE 72
[2020-08-28 07:50] LABS: URINE APPEARANCE CLEAR; URINE BILIRUBIN NEGATIVE (NEGATIVE); URINE COLOR YELLOW; URINE GLUCOSE (UA) NEGATIVE (NEGATIVE); URINE KETONE NEGATIVE (NEGATIVE); URINE LEUK ESTERASE NEGATIVE (NEGATIVE); URINE NITRITE NEGATIVE (NEGATIVE); URINE PROTEIN NEGATIVE (NEGATIVE); URINE UROBILINOGEN 0.2 mg/dL (0.2-1.0)
[2020-08-30] MEDS ORDERED: ERGOCALCIFEROL (VIT D2) 50,000 UNIT (1.25 MG) CAPSULE PO SCH (10:00)
== END 2020-08-27 15:15 | disposition left against medical advice (07) | DRG 770 ==
LOC: YASAS 08:28 → Y5N 15:06
PROVIDERS: ADMIT Allergy & Immunology; ATTEND Allergy & Immunology
PROC: HZ42ZZZ Group Counseling for Substance Abuse Treatment, Cognitive-Behavioral (ICD-10-PCS; principal; 2020-08-23)
DX: F10.20 Alcohol dependence, uncomplicated (principal); F14.20 Cocaine dependence, uncomplicated; F12.20 Cannabis dependence, uncomplicated; F17.210 Nicotine dependence, cigarettes, uncomplicated; I10 Essential (primary) hypertension; E78.5 Hyperlipidemia, unspecified; M17.0 Bilateral primary osteoarthritis of knee; H54.8 Legal blindness, as defined in USA; Z94.7 Corneal transplant status; Z98.890 Other specified postprocedural states; Z88.0 Allergy status to penicillin; Z91.013 Allergy to seafood
CPT/HCPCS: 36415; 80053; 81003; 85027; 86780; C9803; U0003; U0005

== ENCOUNTER 2022-09-06 10:41 | Inpatient (IN) | payer OTHER ==
[2022-09-06 11:22] VITALS: BMI 32.8
[2022-09-06] MEDS ORDERED: LORazepam 1 MG TABLET PO PRN (12:41)
[2022-09-06] MEDS ORDERED: guaiFENesin 600 MG TABLET.ER (FP) PO PRN (12:41)
[2022-09-06] MEDS ORDERED: MAG HYDROX/AL HYDROX/SIMETH 30 ML UNIT-DOSE CUP PO PRN (12:41)
[2022-09-06] MEDS ORDERED: POLYETHYLENE GLYCOL (HEALTHYLAX) 3350 17 GM PACKET PO PRN (12:41)
[2022-09-06] MEDS ORDERED: DICYCLOMINE HCL 10 MG CAPSULE PO PRN (12:41)
[2022-09-06] MEDS ORDERED: BENZOCAINE/MENTHOL (CHLORASEPTIC ) LOZENGE MM PRN (12:41)
[2022-09-06] MEDS ORDERED: BENZONATATE 200 MG CAPSULE PO PRN (12:41)
[2022-09-06] MEDS ORDERED: MAGNESIUM HYDROX 2400MG/30ML ORAL SUSPENSION 30 ML CUP PO PRN (12:41)
[2022-09-06] MEDS ORDERED: NALOXONE HCL 0.4 MG/ML VIAL IM PRN (12:41)
[2022-09-06] MEDS ORDERED: ONDANSETRON *ODT* 4 MG TABLET SL PRN (12:41)
[2022-09-06] MEDS ORDERED: LOPERAMIDE HCL 2 MG CAPSULE PO PRN (12:41)
[2022-09-06] MEDS ORDERED: NALOXONE HCL (KLOXXADO) 8 MG SPRAY NS PRN (12:41)
[2022-09-06] MEDS ORDERED: BISMUTH SUBSALICYLATE 524 MG/30 ML PO PRN (12:41)
[2022-09-06] MEDS ORDERED: METHOCARBAMOL 500 MG TABLET ONE (13:30)
[2022-09-06] MEDS ORDERED: LORazepam 1 MG TABLET ONE (13:31)
[2022-09-06] MEDS: METHOCARBAMOL 500 MG TABLET PO PRN (13:35)
[2022-09-06] MEDS: LORazepam 2 MG TABLET PO SCH ×2 (17:31→22:28)
[2022-09-06] MEDS: ACETAMINOPHEN 325 MG TABLET (FP) PO PRN (17:33)
[2022-09-06] MEDS ORDERED: MELATONIN 5 MG TABLETS PO SCH (22:00)
[2022-09-06] MEDS: ATORVASTATIN CA 10 MG TABLET (FP) PO SCH (22:27)
[2022-09-06] MEDS: THIAMINE HCL 100 MG TABLET (FP) PO SCH (22:28)
[2022-09-07] MEDS: LORazepam 2 MG TABLET PO SCH ×5 (06:00→23:32)
[2022-09-07] MEDS: PRENATAL VITAMINS W/ FOLIC ACID TABLET (FP) PO SCH (10:29)
[2022-09-07] MEDS: METHOCARBAMOL 500 MG TABLET PO PRN ×2 (10:29→17:26)
[2022-09-07] MEDS: amLODIPine BESYLATE 5 MG TABLET (FP) PO SCH (10:31)
[2022-09-07] MEDS: ASPIRIN COATED 81 MG TABLET.EC PO SCH (10:31)
[2022-09-07] MEDS ORDERED: COLLOIDAL OATMEAL 1 BAR EACH TP PRN (14:32)
[2022-09-07] MEDS ORDERED: MELATONIN 5 MG TABLETS PO PRN (22:00)
[2022-09-07] MEDS: ATORVASTATIN CA 10 MG TABLET (FP) PO SCH (23:33)
[2022-09-07] MEDS: THIAMINE HCL 100 MG TABLET (FP) PO SCH (23:33)
[2022-09-08] MEDS: LORazepam 1 MG TABLET PO SCH ×4 (05:52→23:07)
[2022-09-08] MEDS: METHOCARBAMOL 500 MG TABLET PO PRN ×2 (05:55→17:34)
[2022-09-08] MEDS: ASPIRIN COATED 81 MG TABLET.EC PO SCH (10:05)
[2022-09-08] MEDS: amLODIPine BESYLATE 5 MG TABLET (FP) PO SCH (10:05)
[2022-09-08] MEDS: PRENATAL VITAMINS W/ FOLIC ACID TABLET (FP) PO SCH (10:06)
[2022-09-08 10:50] LABS: HEMATOCRIT 48.3 % (35.4-49); HEMOGLOBIN 14.9 GM/dL (11.7-16.9); MCH 21.3 pg (25.7-33.7); MCHC 30.9 g/dl (32.0-35.9); MEAN CELL VOLUME 69.1 fl (80-96); MEAN PLT VOLUME 10.1 fl (7.5-11.1); PLATELET COUNT 191 10^3/uL (134-434); RBC 6.99 M/mm3 (4.00-5.60); RDW 16.9 % (11.9-15.9)
[2022-09-08 11:12] LABS: POTASSIUM 4.7 mmol/L (3.5-5.1)
[2022-09-08 11:16] LABS: CALCIUM 8.7 mg/dL (8.5-10.1)
[2022-09-08 11:17] LABS: ALBUMIN 3.2 g/dl (3.4-5.0); BLOOD UREA NITROGEN 18.5 mg/dL (7-18); CREATININE 1.1 mg/dL (0.55-1.3)
[2022-09-08 11:19] LABS: BILIRUBIN,TOTAL 0.3 mg/dL (0.2-1); TOT PROT 6.5 g/dl (6.4-8.2)
[2022-09-08] MEDS: ATORVASTATIN CA 10 MG TABLET (FP) PO SCH (23:07)
[2022-09-08] MEDS: THIAMINE HCL 100 MG TABLET (FP) PO SCH (23:08)
[2022-09-09] MEDS ORDERED: LORazepam 0.5 MG TABLET PO PRN
[2022-09-09] MEDS: ACETAMINOPHEN 325 MG TABLET (FP) PO PRN (02:44)
[2022-09-09] MEDS: METHOCARBAMOL 500 MG TABLET PO PRN ×3 (02:44→17:28)
[2022-09-09] MEDS: LORazepam 0.5 MG TABLET PO SCH ×4 (05:36→22:56)
[2022-09-09] MEDS: LACTULOSE 20 GM/30 ML UDC (FOR ORAL USE ONLY) PO SCH ×4 (10:14→22:55)
[2022-09-09] MEDS: ASPIRIN COATED 81 MG TABLET.EC PO SCH (10:23)
[2022-09-09] MEDS: PRENATAL VITAMINS W/ FOLIC ACID TABLET (FP) PO SCH (10:23)
[2022-09-09] MEDS: amLODIPine BESYLATE 5 MG TABLET (FP) PO SCH (10:24)
[2022-09-09] MEDS: ATORVASTATIN CA 10 MG TABLET (FP) PO SCH (22:56)
[2022-09-09] MEDS: THIAMINE HCL 100 MG TABLET (FP) PO SCH (22:56)
[2022-09-10] MEDS: METHOCARBAMOL 500 MG TABLET PO PRN (04:30)
[2022-09-10] MEDS ORDERED: IBUPROFEN 400 MG TABLET (FP) PO ONE (04:40)
[2022-09-10] MEDS ORDERED: LORazepam 0.5 MG TABLET PO ONE (05:00)
[2022-09-10 09:25] VITALS: BP 129/76; PULSE 79; RESP 18; TEMP 97.3
[2022-09-10] MEDS: PRENATAL VITAMINS W/ FOLIC ACID TABLET (FP) PO SCH (09:33)
[2022-09-10] MEDS: LACTULOSE 20 GM/30 ML UDC (FOR ORAL USE ONLY) PO SCH (09:34)
[2022-09-10] MEDS: amLODIPine BESYLATE 5 MG TABLET (FP) PO SCH (09:35)
[2022-09-10] MEDS: ASPIRIN COATED 81 MG TABLET.EC PO SCH (09:35)
== END 2022-09-10 09:44 | disposition other institution (70) | DRG 774 ==
LOC: YASAS 10:41 → Y6N 13:26
PROVIDERS: ADMIT Allergy & Immunology; ATTEND Surgery
PROC: HZ2ZZZZ Detoxification Services for Substance Abuse Treatment (ICD-10-PCS; principal; 2022-09-06)
DX: F10.230 Alcohol dependence with withdrawal, uncomplicated (principal); F14.20 Cocaine dependence, uncomplicated; E78.5 Hyperlipidemia, unspecified; I10 Essential (primary) hypertension; I25.2 Old myocardial infarction; H54.8 Legal blindness, as defined in USA; M17.0 Bilateral primary osteoarthritis of knee; R79.89 Other specified abnormal findings of blood chemistry; Z95.5 Presence of coronary angioplasty implant and graft; Z99.89 Dependence on other enabling machines and devices; Z87.891 Personal history of nicotine dependence; Z88.0 Allergy status to penicillin; Z91.013 Allergy to seafood; Z28.310 Unvaccinated for COVID-19; Z28.9 Immunization not carried out for unspecified reason
CPT/HCPCS: 36415; 80053; 82140; 85027; 86780; 87635; 93005; 93010

== ENCOUNTER 2022-09-10 09:53 | Inpatient (IN) | payer OTHER ==
[2022-09-10] MEDS ORDERED: guaiFENesin 600 MG TABLET.ER (FP) PO PRN (10:24)
[2022-09-10] MEDS ORDERED: LOPERAMIDE HCL 2 MG CAPSULE PO PRN (10:24)
[2022-09-10] MEDS ORDERED: NICOTINE 10 MG CARTRIDGE (INHALER) IH PRN (10:24)
[2022-09-10] MEDS ORDERED: IBUPROFEN 400 MG TABLET (FP) PO PRN (10:24)
[2022-09-10] MEDS ORDERED: hydrOXYzine PAMOATE 25 MG CAPSULE (FP) PO PRN (10:24)
[2022-09-10] MEDS ORDERED: ACETAMINOPHEN 325 MG TABLET (FP) PO PRN (10:24)
[2022-09-10] MEDS ORDERED: NICOTINE POLACRILEX 2 MG GUM BUC PRN (10:24)
[2022-09-10] MEDS ORDERED: MAG HYDROX/AL HYDROX/SIMETH 30 ML UNIT-DOSE CUP PO PRN (10:24)
[2022-09-10] MEDS ORDERED: BENZONATATE 200 MG CAPSULE PO PRN (10:24)
[2022-09-10] MEDS ORDERED: AMMONIUM LACTATE 12% LOTION 225 GM BOTTLE TP PRN (10:24)
[2022-09-10] MEDS ORDERED: BENZOCAINE/MENTHOL (CHLORASEPTIC ) LOZENGE MM PRN (10:24)
[2022-09-10] MEDS ORDERED: POLYETHYLENE GLYCOL (HEALTHYLAX) 3350 17 GM PACKET PO PRN (10:24)
[2022-09-10] MEDS ORDERED: MAGNESIUM HYDROX 2400MG/30ML ORAL SUSPENSION 30 ML CUP PO PRN (10:24)
[2022-09-10] MEDS ORDERED: COLLOIDAL OATMEAL 1 BAR EACH TP PRN (10:24)
[2022-09-10] MEDS: LACTULOSE 20 GM/30 ML UDC (FOR ORAL USE ONLY) PO SCH ×3 (14:02→21:11)
[2022-09-10] MEDS: MELATONIN 5 MG TABLETS PO SCH (21:10)
[2022-09-10] MEDS: THIAMINE HCL 100 MG TABLET (FP) PO SCH (21:10)
[2022-09-10] MEDS: METHOCARBAMOL 500 MG TABLET PO PRN (21:12)
[2022-09-10] MEDS: ATORVASTATIN CA 10 MG TABLET (FP) PO SCH (21:12)
[2022-09-11] MEDS: IBUPROFEN 600 MG TABLET (FP) PO PRN (08:47)
[2022-09-11] MEDS: ASPIRIN COATED 81 MG TABLET.EC PO SCH (09:11)
[2022-09-11] MEDS: amLODIPine BESYLATE 10 MG TABLET (FP) PO SCH (09:11)
[2022-09-11] MEDS: PRENATAL VITAMINS W/ FOLIC ACID TABLET (FP) PO SCH (09:12)
[2022-09-11] MEDS: LACTULOSE 20 GM/30 ML UDC (FOR ORAL USE ONLY) PO SCH ×4 (09:12→21:24)
[2022-09-11] MEDS: METHOCARBAMOL 500 MG TABLET PO PRN (21:24)
[2022-09-11] MEDS: THIAMINE HCL 100 MG TABLET (FP) PO SCH (21:25)
[2022-09-11] MEDS: MELATONIN 5 MG TABLETS PO SCH (21:25)
[2022-09-11] MEDS: ATORVASTATIN CA 10 MG TABLET (FP) PO SCH (21:25)
[2022-09-12] MEDS: amLODIPine BESYLATE 10 MG TABLET (FP) PO SCH (09:50)
[2022-09-12] MEDS: ASPIRIN COATED 81 MG TABLET.EC PO SCH (09:50)
[2022-09-12] MEDS: PRENATAL VITAMINS W/ FOLIC ACID TABLET (FP) PO SCH (09:50)
[2022-09-12] MEDS: IBUPROFEN 600 MG TABLET (FP) PO PRN ×2 (09:52→15:19)
[2022-09-12] MEDS: LACTULOSE 20 GM/30 ML UDC (FOR ORAL USE ONLY) PO SCH ×4 (10:22→21:32)
[2022-09-12] MEDS ORDERED: ERGOCALCIFEROL (VIT D2) 50,000 UNIT (1.25 MG) CAPSULE PO SCH (12:00)
[2022-09-12] MEDS: MELATONIN 5 MG TABLETS PO SCH (21:32)
[2022-09-12] MEDS: METHOCARBAMOL 500 MG TABLET PO PRN (21:32)
[2022-09-12] MEDS: ATORVASTATIN CA 10 MG TABLET (FP) PO SCH (21:32)
[2022-09-12] MEDS: THIAMINE HCL 100 MG TABLET (FP) PO SCH (21:32)
[2022-09-13] MEDS: IBUPROFEN 600 MG TABLET (FP) PO PRN ×2 (09:05→21:26)
[2022-09-13] MEDS: amLODIPine BESYLATE 10 MG TABLET (FP) PO SCH (09:05)
[2022-09-13] MEDS: PRENATAL VITAMINS W/ FOLIC ACID TABLET (FP) PO SCH (09:05)
[2022-09-13] MEDS: ASPIRIN COATED 81 MG TABLET.EC PO SCH (09:05)
[2022-09-13] MEDS: LACTULOSE 20 GM/30 ML UDC (FOR ORAL USE ONLY) PO SCH ×4 (09:05→21:25)
[2022-09-13] MEDS: THIAMINE HCL 100 MG TABLET (FP) PO SCH (21:24)
[2022-09-13] MEDS: ATORVASTATIN CA 10 MG TABLET (FP) PO SCH (21:25)
[2022-09-13] MEDS: METHOCARBAMOL 500 MG TABLET PO PRN (21:25)
[2022-09-13] MEDS: MELATONIN 5 MG TABLETS PO SCH (21:25)
[2022-09-14] MEDS: PRENATAL VITAMINS W/ FOLIC ACID TABLET (FP) PO SCH (09:21)
[2022-09-14] MEDS: amLODIPine BESYLATE 10 MG TABLET (FP) PO SCH (09:21)
[2022-09-14] MEDS: LACTULOSE 20 GM/30 ML UDC (FOR ORAL USE ONLY) PO SCH ×4 (09:21→21:27)
[2022-09-14] MEDS: ASPIRIN COATED 81 MG TABLET.EC PO SCH (09:21)
[2022-09-14] MEDS: IBUPROFEN 600 MG TABLET (FP) PO PRN ×2 (09:22→21:26)
[2022-09-14] MEDS: THIAMINE HCL 100 MG TABLET (FP) PO SCH (21:25)
[2022-09-14] MEDS: MELATONIN 5 MG TABLETS PO SCH (21:25)
[2022-09-14] MEDS: ATORVASTATIN CA 10 MG TABLET (FP) PO SCH (21:27)
[2022-09-15] MEDS: METHOCARBAMOL 500 MG TABLET PO PRN (10:17)
[2022-09-15] MEDS: amLODIPine BESYLATE 10 MG TABLET (FP) PO SCH (10:17)
[2022-09-15] MEDS: LACTULOSE 20 GM/30 ML UDC (FOR ORAL USE ONLY) PO SCH ×4 (10:18→21:23)
[2022-09-15] MEDS: PRENATAL VITAMINS W/ FOLIC ACID TABLET (FP) PO SCH (10:18)
[2022-09-15] MEDS: ASPIRIN COATED 81 MG TABLET.EC PO SCH (10:52)
[2022-09-15] MEDS: ATORVASTATIN CA 10 MG TABLET (FP) PO SCH (21:24)
[2022-09-15] MEDS: THIAMINE HCL 100 MG TABLET (FP) PO SCH (21:24)
[2022-09-15] MEDS: MELATONIN 5 MG TABLETS PO SCH (21:24)
[2022-09-16 06:31] VITALS: RESP 16; TEMP 98
[2022-09-16] MEDS: ASPIRIN COATED 81 MG TABLET.EC PO SCH (09:08)
[2022-09-16] MEDS: LACTULOSE 20 GM/30 ML UDC (FOR ORAL USE ONLY) PO SCH (09:08)
[2022-09-16] MEDS: PRENATAL VITAMINS W/ FOLIC ACID TABLET (FP) PO SCH (09:09)
[2022-09-16] MEDS: amLODIPine BESYLATE 10 MG TABLET (FP) PO SCH (09:09)
[2022-09-16 09:15] VITALS: BP 122/78; PULSE 92
== END 2022-09-16 09:16 | disposition home or self-care (01) | DRG 772 ==
LOC: YASAS 09:53 → Y3E 09:56
PROVIDERS: ADMIT Allergy & Immunology; ATTEND Psychiatry & Neurology Pain Medicine
PROC: HZ42ZZZ Group Counseling for Substance Abuse Treatment, Cognitive-Behavioral (ICD-10-PCS; principal; 2022-09-10)
DX: F10.20 Alcohol dependence, uncomplicated (principal); F14.20 Cocaine dependence, uncomplicated; F41.9 Anxiety disorder, unspecified; E78.5 Hyperlipidemia, unspecified; I10 Essential (primary) hypertension; I25.2 Old myocardial infarction; H54.8 Legal blindness, as defined in USA; M17.0 Bilateral primary osteoarthritis of knee; N40.0 Benign prostatic hyperplasia without lower urinary tract symptoms; R79.89 Other specified abnormal findings of blood chemistry; Z87.891 Personal history of nicotine dependence; Z94.7 Corneal transplant status; Z99.89 Dependence on other enabling machines and devices
CPT/HCPCS: 82306

== ENCOUNTER 2023-06-02 10:54 | Inpatient (IN) | payer OTHER ==
[2023-06-02 11:16] VITALS: BMI 30.4
[2023-06-02] MEDS ORDERED: BENZOCAINE/MENTHOL (CHLORASEPTIC ) LOZENGE MM PRN (11:53)
[2023-06-02] MEDS ORDERED: guaiFENesin 600 MG TABLET.ER (FP) PO PRN (11:53)
[2023-06-02] MEDS ORDERED: BENZONATATE 200 MG CAPSULE PO PRN (11:53)
[2023-06-02] MEDS ORDERED: IBUPROFEN 400 MG TABLET (FP) PO PRN (11:53)
[2023-06-02] MEDS ORDERED: POLYETHYLENE GLYCOL (HEALTHYLAX) 3350 17 GM PACKET PO PRN (11:53)
[2023-06-02] MEDS ORDERED: LOPERAMIDE HCL 2 MG CAPSULE PO PRN (11:53)
[2023-06-02] MEDS ORDERED: MAG HYDROX/AL HYDROX/SIMETH 30 ML UNIT-DOSE CUP PO PRN (11:53)
[2023-06-02] MEDS ORDERED: NALOXONE HCL 0.4 MG/ML VIAL IM PRN (11:53)
[2023-06-02] MEDS ORDERED: NALOXONE HCL (KLOXXADO) 8 MG SPRAY NS PRN (11:53)
[2023-06-02] MEDS: PRENATAL VITAMINS W/ FOLIC ACID TABLET (FP) PO SCH (15:02)
[2023-06-02] MEDS: THIAMINE HCL 100 MG TABLET (FP) PO SCH (21:26)
[2023-06-02] MEDS: MELATONIN 5 MG TABLETS PO SCH (21:26)
[2023-06-03] MEDS: amLODIPine BESYLATE 10 MG TABLET (FP) PO SCH (10:11)
[2023-06-03] MEDS: ASPIRIN COATED 81 MG TABLET.EC PO SCH (10:11)
[2023-06-03] MEDS: CHOLECALCIFEROL (VIT D3) 400 UNIT (10 MCG) TABLET PO SCH (10:12)
[2023-06-03 12:42] LABS: HEMATOCRIT 47.7 % (35.4-49); HEMOGLOBIN 14.9 GM/dL (11.7-16.9); MCH 21.6 pg (25.7-33.7); MCHC 31.3 g/dl (32.0-35.9); MEAN CELL VOLUME 68.9 fl (80-96); MEAN PLT VOLUME 10.9 fl (7.5-11.1); PLATELET COUNT 223 10^3/uL (134-434); RBC 6.92 M/mm3 (4.00-5.60); RDW 17.3 % (11.9-15.9); WHITE BLOOD COUNT 4.1 K/mm3 (4.0-10.0)
[2023-06-03 12:47] LABS: POTASSIUM 4.1 mmol/L (3.5-5.1)
[2023-06-03 13:09] LABS: ALBUMIN 3.9 g/dl (3.4-5.0); BLOOD UREA NITROGEN 11.9 mg/dL (7-18); CALCIUM 9.7 mg/dL (8.5-10.1)
[2023-06-03 13:13] LABS: CREATININE 1.6 mg/dL (0.55-1.3); TOT PROT 7.5 g/dl (6.4-8.2)
[2023-06-03] MEDS: ATORVASTATIN CA 10 MG TABLET (FP) PO SCH (21:24)
[2023-06-05 12:26] LABS: PH,URINE 5.5 (5.0-8.0); URINE APPEARANCE CLEAR; URINE BILIRUBIN NEGATIVE (NEGATIVE); URINE COLOR YELLOW; URINE GLUCOSE (UA) NEGATIVE (NEGATIVE); URINE KETONE NEGATIVE (NEGATIVE); URINE LEUK ESTERASE NEGATIVE (NEGATIVE); URINE NITRITE NEGATIVE (NEGATIVE); URINE PROTEIN TRACE (NEGATIVE); URINE UROBILINOGEN 0.2 mg/dL (0.2-1.0)
[2023-06-05] MEDS: LOSARTAN POTASSIUM 50 MG TABLET PO SCH (16:54)
[2023-06-05] MEDS: hydrOXYzine PAMOATE 25 MG CAPSULE (FP) PO PRN (20:58)
[2023-06-06] MEDS: METHOCARBAMOL 500 MG TABLET PO PRN (21:23)
[2023-06-07] MEDS: RANOLAZINE 500 MG PO SCH (11:54)
[2023-06-09] MEDS: IBUPROFEN 600 MG TABLET (FP) PO PRN (15:42)
[2023-06-14] MEDS: FERROUS SO4 325 MG TABLET (FP) PO SCH (10:07)
[2023-06-23 06:51] VITALS: RESP 18
[2023-06-23] MEDS: ACETAMINOPHEN 325 MG TABLET (FP) PO PRN (09:27)
[2023-06-28] MEDS: MAGNESIUM HYDROX 2400MG/30ML ORAL SUSPENSION 30 ML CUP PO PRN (12:00)
[2023-06-29 07:53] VITALS: BP 142/76; PULSE 71; TEMP 97.7
== END 2023-06-29 08:39 | disposition home or self-care (01) | DRG 772 ==
LOC: YASAS 10:54 → Y3E 15:02 → Y3W 06-04 10:34
PROVIDERS: ADMIT Allergy & Immunology; ATTEND Psychiatry & Neurology Pain Medicine
PROC: HZ42ZZZ Group Counseling for Substance Abuse Treatment, Cognitive-Behavioral (ICD-10-PCS; principal; 2023-06-02)
DX: F14.20 Cocaine dependence, uncomplicated (principal); F10.20 Alcohol dependence, uncomplicated; E78.5 Hyperlipidemia, unspecified; G62.9 Polyneuropathy, unspecified; H54.8 Legal blindness, as defined in USA; I10 Essential (primary) hypertension; M17.0 Bilateral primary osteoarthritis of knee; M54.50 Low back pain, unspecified; I25.2 Old myocardial infarction; Z95.5 Presence of coronary angioplasty implant and graft; Z99.89 Dependence on other enabling machines and devices; Z87.891 Personal history of nicotine dependence; Z88.0 Allergy status to penicillin
CPT/HCPCS: 36415; 80053; 80305; 80307; 81003; 85027; 86780; 87635

== ENCOUNTER 2023-09-29 14:24 | Inpatient (IN) | payer OTHER ==
[2023-09-29 15:15] VITALS: BMI 31.2
[2023-09-29] MEDS ORDERED: ONDANSETRON *ODT* 4 MG TABLET SL PRN (17:45)
[2023-09-29] MEDS ORDERED: LOPERAMIDE HCL 2 MG CAPSULE PO PRN (17:45)
[2023-09-29] MEDS ORDERED: ACETAMINOPHEN 325 MG TABLET (FP) PO PRN (17:45)
[2023-09-29] MEDS ORDERED: hydrOXYzine PAMOATE 25 MG CAPSULE (FP) PO PRN (17:45)
[2023-09-29] MEDS ORDERED: DICYCLOMINE HCL 10 MG CAPSULE PO PRN (17:45)
[2023-09-29] MEDS ORDERED: MAGNESIUM HYDROX 2400MG/30ML ORAL SUSPENSION 30 ML CUP PO PRN (17:45)
[2023-09-29] MEDS: IBUPROFEN 400 MG TABLET (FP) PO PRN (19:36)
[2023-09-29] MEDS: THIAMINE 100 MG TABLET PO SCH (22:49)
[2023-09-30] MEDS: PRENATAL VITAMINS W/ FOLIC ACID TABLET (FP) PO SCH (10:32)
[2023-09-30 11:43] LABS: HEMATOCRIT 48.6 % (35.4-49); HEMOGLOBIN 15.2 GM/dL (11.7-16.9); MCH 21.7 pg (25.7-33.7); MCHC 31.3 g/dl (32.0-35.9); MEAN CELL VOLUME 69.4 fl (80-96); MEAN PLT VOLUME 10.1 fl (7.5-11.1); PLATELET COUNT 195 10^3/uL (134-434); WHITE BLOOD COUNT 7.1 K/mm3 (4.0-10.0)
[2023-09-30 11:45] LABS: RBC 7.01 M/mm3 (4.00-5.60)
[2023-09-30 13:47] LABS: CHLORIDE 109 mmol/L (98-107); POTASSIUM 4.5 mmol/L (3.5-5.1); SODIUM 140 mmol/L (136-145)
[2023-09-30 13:50] LABS: ALBUMIN 3.3 g/dl (3.4-5.0)
[2023-09-30 13:52] LABS: CALCIUM 9.1 mg/dL (8.5-10.1)
[2023-09-30 13:53] LABS: GLUCOSE,RANDOM 112 mg/dL (74-106)
[2023-09-30 13:55] LABS: CO2 27 mmol/L (21-32); SGPT/ALT 18 U/L (13-61)
[2023-09-30 13:56] LABS: BILIRUBIN,TOTAL 0.7 mg/dL (0.2-1); SGOT/AST 22 U/L (15-37); TOT PROT 6.2 g/dl (6.4-8.2)
[2023-09-30 13:57] LABS: ALK PHOS 59 U/L (45-117); CREATININE 1.4 mg/dL (0.55-1.3)
[2023-09-30] MEDS ORDERED: LOPERAMIDE HCL 2 MG CAPSULE PO PRN (16:53)
[2023-09-30] MEDS ORDERED: BENZONATATE 200 MG CAPSULE PO PRN (16:53)
[2023-09-30] MEDS ORDERED: METHOCARBAMOL 500 MG TABLET PO PRN (16:53)
[2023-09-30] MEDS ORDERED: NALOXONE HCL 0.4 MG/ML VIAL IVPUSH PRN (16:53)
[2023-09-30] MEDS ORDERED: POLYETHYLENE GLYCOL (HEALTHYLAX) 3350 17 GM PACKET PO PRN (16:53)
[2023-09-30] MEDS ORDERED: guaiFENesin 600 MG TABLET.ER (FP) PO PRN (16:53)
[2023-09-30] MEDS ORDERED: BENZOCAINE/MENTHOL (CHLORASEPTIC ) LOZENGE MM PRN (16:53)
[2023-09-30] MEDS ORDERED: MAGNESIUM HYDROX 2400MG/30ML ORAL SUSPENSION 30 ML CUP PO PRN (16:53)
[2023-09-30] MEDS ORDERED: NALOXONE (NARCAN) HCL 4 MG/0.1 ML SPRAY NS PRN (16:53)
[2023-09-30 19:38] LABS: HIV INTERPRETATION NEGATIVE (NEGATIVE)
[2023-09-30] MEDS: MELATONIN 5 MG TABLETS PO SCH (21:31)
[2023-09-30] MEDS: ATORVASTATIN CA 10 MG TABLET (FP) PO SCH (21:31)
[2023-09-30] MEDS: THIAMINE 100 MG TABLET PO SCH (21:32)
[2023-10-01] MEDS ORDERED: PRENATAL VITAMINS W/ FOLIC ACID TABLET (FP) PO SCH (10:00)
[2023-10-01] MEDS: LOSARTAN POTASSIUM 50 MG TABLET PO SCH (10:18)
[2023-10-01] MEDS: ASPIRIN COATED 81 MG TABLET.EC PO SCH (10:18)
[2023-10-01] MEDS: amLODIPine BESYLATE 10 MG TABLET (FP) PO SCH (10:18)
[2023-10-01] MEDS: IBUPROFEN 400 MG TABLET (FP) PO PRN (21:24)
[2023-10-02] MEDS: ACETAMINOPHEN 325 MG TABLET (FP) PO PRN (06:40)
[2023-10-02] MEDS: hydrOXYzine PAMOATE 25 MG CAPSULE (FP) PO PRN (21:05)
[2023-10-02] MEDS: IBUPROFEN 600 MG TABLET (FP) PO PRN (21:05)
[2023-10-08] MEDS: MAG HYDROX/AL HYDROX/SIMETH 30 ML UNIT-DOSE CUP PO PRN (08:54)
[2023-10-12] MEDS: LIDOCAINE 5% TOPICAL PATCH TP SCH (10:54)
[2023-10-12] MEDS: hydrOXYzine PAMOATE 25 MG CAPSULE (FP) PO SCH (21:38)
[2023-10-12] MEDS: LIDOCAINE PATCH REMOVAL MC SCH (21:39)
[2023-10-13] MEDS ORDERED: PRENATAL VITAMINS W/ FOLIC ACID TABLET (FP) PO PRN (15:41)
[2023-10-14] MEDS: SUVOREXANT 10 MG TABLET PO PRN (21:33)
[2023-10-17] MEDS: SUVOREXANT 10 MG TABLET PO ONE (21:53)
[2023-10-18] MEDS: SUVOREXANT 10 MG TABLET PO SCH (21:31)
[2023-10-19] MEDS ORDERED: SUVOREXANT 10 MG TABLET PO PRN (09:52)
[2023-10-19] MEDS: SUVOREXANT 15 MG TABLET PO PRN (21:17)
[2023-10-22 07:03] VITALS: BP 139/76; PULSE 67; RESP 16; TEMP 97.3
== END 2023-10-22 07:55 | disposition home or self-care (01) | DRG 772 ==
LOC: YASAS 14:24 → Y3NR 18:31 → Y3W 09-30 11:04
PROVIDERS: ADMIT Allergy & Immunology; ATTEND Psychiatry & Neurology Pain Medicine
PROC: HZ2ZZZZ Detoxification Services for Substance Abuse Treatment (ICD-10-PCS; principal; 2023-09-29)
PROC: HZ42ZZZ Group Counseling for Substance Abuse Treatment, Cognitive-Behavioral (ICD-10-PCS; 2023-09-29)
DX: F14.20 Cocaine dependence, uncomplicated (principal); I10 Essential (primary) hypertension; I25.2 Old myocardial infarction; E78.5 Hyperlipidemia, unspecified; E72.20 Disorder of urea cycle metabolism, unspecified; M17.0 Bilateral primary osteoarthritis of knee; H54.8 Legal blindness, as defined in USA; G47.30 Sleep apnea, unspecified; M54.59 Other low back pain; R26.2 Difficulty in walking, not elsewhere classified; Z99.89 Dependence on other enabling machines and devices; Z95.5 Presence of coronary angioplasty implant and graft; Z88.0 Allergy status to penicillin; Z91.013 Allergy to seafood
CPT/HCPCS: 36415; 80053; 80305; 80307; 85027; 86780; 86803; 87389; 87811; 93005; 93010

== ENCOUNTER 2023-12-31 08:10 | Inpatient (IN) | payer OTHER ==
[2023-12-31 09:26] VITALS: BMI 32.3
[2023-12-31] MEDS ORDERED: LOPERAMIDE HCL 2 MG CAPSULE PO PRN (10:30)
[2023-12-31] MEDS ORDERED: BENZONATATE 200 MG CAPSULE PO PRN (10:30)
[2023-12-31] MEDS ORDERED: POLYETHYLENE GLYCOL (HEALTHYLAX) 3350 17 GM PACKET PO PRN (10:30)
[2023-12-31] MEDS ORDERED: IBUPROFEN 400 MG TABLET (FP) PO PRN (10:30)
[2023-12-31] MEDS ORDERED: NALOXONE (NARCAN) HCL 4 MG/0.1 ML SPRAY NS PRN (10:30)
[2023-12-31] MEDS ORDERED: guaiFENesin 600 MG TABLET.ER (FP) PO PRN (10:30)
[2023-12-31] MEDS ORDERED: MAG HYDROX/AL HYDROX/SIMETH 30 ML UNIT-DOSE CUP PO PRN (10:30)
[2023-12-31] MEDS ORDERED: BENZOCAINE/MENTHOL (CHLORASEPTIC ) LOZENGE MM PRN (10:30)
[2023-12-31] MEDS ORDERED: MAGNESIUM HYDROX 2400MG/30ML ORAL SUSPENSION 30 ML CUP PO PRN (10:30)
[2023-12-31] MEDS ORDERED: IBUPROFEN 600 MG TABLET (FP) PO ONE (11:08)
[2023-12-31] MEDS: IBUPROFEN 600 MG TABLET (FP) PO PRN (11:10)
[2023-12-31] MEDS: FLU VACCINE (FLULAVAL) PF 45 MCG/0.5 ML SYRINGE 2024-2025 IM ONE (12:58)
[2023-12-31] MEDS ORDERED: MELATONIN 5 MG TABLETS PO SCH (22:00)
[2023-12-31] MEDS: SUVOREXANT 10 MG TABLET PO PRN (22:15)
[2023-12-31] MEDS: THIAMINE 100 MG TABLET PO SCH (22:16)
[2024-01-01] MEDS: PRENATAL VITAMINS W/ FOLIC ACID TABLET (FP) PO SCH (10:33)
[2024-01-01] MEDS: amLODIPine BESYLATE 10 MG TABLET (FP) PO SCH (10:34)
[2024-01-01] MEDS: LOSARTAN POTASSIUM 50 MG TABLET PO SCH (10:34)
[2024-01-01] MEDS: ASPIRIN COATED 81 MG TABLET.EC PO SCH (10:34)
[2024-01-01 14:31] LABS: HEMATOCRIT 50.9 % (35.4-49); HEMOGLOBIN 15.9 GM/dL (11.7-16.9); MCH 21.5 pg (25.7-33.7); MCHC 31.2 g/dl (32.0-35.9); MEAN CELL VOLUME 68.8 fl (80-96); MEAN PLT VOLUME 10.7 fl (7.5-11.1); PLATELET COUNT 245 10^3/uL (134-434); WHITE BLOOD COUNT 10.9 K/mm3 (4.0-10.0)
[2024-01-01 14:34] LABS: RBC 7.41 M/mm3 (4.00-5.60)
[2024-01-01] MEDS: LIDOCAINE 5% TOPICAL PATCH TP SCH (14:46)
[2024-01-01 14:50] LABS: POTASSIUM 4.7 mmol/L (3.5-5.1)
[2024-01-01 14:52] LABS: BLOOD UREA NITROGEN 24.5 mg/dL (7-18); CALCIUM 9.8 mg/dL (8.5-10.1)
[2024-01-01 14:55] LABS: ALBUMIN 4.2 g/dl (3.4-5.0)
[2024-01-01 14:56] LABS: CREATININE 1.8 mg/dL (0.55-1.3)
[2024-01-01 14:57] LABS: BILIRUBIN,TOTAL 0.9 mg/dL (0.2-1)
[2024-01-01] MEDS: ATORVASTATIN CA 10 MG TABLET (FP) PO SCH (21:10)
[2024-01-01] MEDS: LIDOCAINE PATCH REMOVAL MC SCH (21:40)
[2024-01-01] MEDS ORDERED: ATORVASTATIN CA 10 MG TABLET (FP) PO SCH (22:00)
[2024-01-02] MEDS: ARTIFICIAL TEARS OPHTHALMIC DROPS OU PRN (15:22)
[2024-01-02 20:10] LABS: PH,URINE 5.5 (5.0-8.0); URINE APPEARANCE CLEAR; URINE BILIRUBIN NEGATIVE (NEGATIVE); URINE COLOR YELLOW; URINE GLUCOSE (UA) NEGATIVE (NEGATIVE); URINE KETONE NEGATIVE (NEGATIVE); URINE LEUK ESTERASE NEGATIVE (NEGATIVE); URINE NITRITE NEGATIVE (NEGATIVE); URINE PROTEIN NEGATIVE (NEGATIVE)
[2024-01-04] MEDS: ACETAMINOPHEN 325 MG TABLET (FP) PO PRN (03:42)
[2024-01-04] MEDS: SUVOREXANT 15 MG TABLET PO PRN (21:33)
[2024-01-05] MEDS: VITAMINS A AND D TOPICAL OINTMENT TP SCH (19:09)
[2024-01-05] MEDS: SUVOREXANT 20 MG TABLET PO PRN (21:11)
[2024-01-07] MEDS: ATORVASTATIN CA 20 MG TABLET (FP) PO SCH (21:08)
[2024-01-07] MEDS: SUVOREXANT 20 MG TABLET PO PRN (21:09)
[2024-01-10] MEDS: SUVOREXANT 20 MG TABLET PO PRN (21:37)
[2024-01-11] MEDS: diphenhydrAMINE HCL 25 MG CAPSULE (FP) PO SCH (21:10)
[2024-01-14] MEDS: SUVOREXANT 20 MG TABLET PO PRN (21:38)
[2024-01-16] MEDS: SUVOREXANT 20 MG TABLET PO PRN (21:34)
[2024-01-19] MEDS: SUVOREXANT 20 MG TABLET PO PRN (21:13)
[2024-01-21] MEDS: SUVOREXANT 20 MG TABLET PO PRN (21:12)
[2024-01-24] MEDS ORDERED: SUVOREXANT 10 MG TABLET PO PRN (22:00)
[2024-01-25 07:02] VITALS: BP 155/87; PULSE 69; RESP 16; TEMP 97.3
[2024-01-25] MEDS: NALOXONE (NYS OPIOID OVERDOSE PROGRAM) 4 MG/0.1 ML SPRAY NS PRN (08:30)
== END 2024-01-25 08:49 | disposition home or self-care (01) | DRG 772 ==
LOC: YASAS 08:10 → Y3NR 11:55 → Y3W 01-01 10:54
PROVIDERS: ADMIT Psychiatry & Neurology Pain Medicine; ATTEND Psychiatry & Neurology Pain Medicine
PROC: HZ42ZZZ Group Counseling for Substance Abuse Treatment, Cognitive-Behavioral (ICD-10-PCS; principal; 2023-12-31)
DX: F14.20 Cocaine dependence, uncomplicated (principal); F19.282 Other psychoactive substance dependence with psychoactive substance-induced sleep disorder; F32.A Depression, unspecified; F41.9 Anxiety disorder, unspecified; G62.9 Polyneuropathy, unspecified; G47.30 Sleep apnea, unspecified; H54.8 Legal blindness, as defined in USA; I25.10 Atherosclerotic heart disease of native coronary artery without angina pectoris; I10 Essential (primary) hypertension; Z95.5 Presence of coronary angioplasty implant and graft; I25.2 Old myocardial infarction; E78.5 Hyperlipidemia, unspecified; M17.0 Bilateral primary osteoarthritis of knee; M54.50 Low back pain, unspecified; G89.29 Other chronic pain; Z87.891 Personal history of nicotine dependence
CPT/HCPCS: 36415; 80053; 80305; 80307; 81003; 85027; 86780; 87811; 90656; 93005; 93010; G0008